=== PATIENT | female | born 1960 | race Caucasian/White ===

== ENCOUNTER → 2017-06-28 13:39 | Outpatient (CLI) | payer BC, SELFPAY ==
--- NOTE | 2017-06-28 14:11 | HPBI_ITS ---
MAMMOGRAPHY - BILATERAL DIAGNOSTIC REASON FOR EXAM: Female, 57 years old. Left lateral breast pain. PERTINENT HISTORY: Non-contributory. TECHNIQUE: Digital bilateral breast jose (3D mammographic acquisition) in the CC and MLO projections. 2-D mediolateral oblique (MLO) and craniocaudad (CC) views of both breasts were obtained. CAD: Full Field Digital Mammography with Computer Added Detection was performed. COMPARISON: Comparison is made with prior outside mammogram dated June 22, 2016. FINDINGS: Breast Composition: There are scattered areas of fibroglandular density. There are no dominant masses or suspicious calcifications. No other significant abnormalities are identified. There has been no significant change since the prior study. BI/DIAG MAMM W/CAD, BILAT IMPRESSION: Stable bilateral diagnostic mammogram. With the patient's history of left breast pain, correlation with ultrasound is recommended. ASSESSMENT CATEGORY: BIRADS Category 0: Incomplete. Need additional imaging evaluation. A letter regarding these results will be sent to the patient by the facility within 30 days. Approximately 10% of breast cancers are not detected by mammography. A normal mammogram should not delay biopsy of a clinically suspicious abnormality. Electronically Signed: Nj Bruce MD at 15:28 EST Tel [phone], Service support ,
== END ==
PROVIDERS: Family Provider Family Medicine; PCP Family Medicine; Visit Provider Nurse Practitioner Women's Health
DX: N64.4 Mastodynia (principal)
CPT/HCPCS: 77062; 77066; G0279

== ENCOUNTER 2018-07-30 00:22 | Emergency (ER) | payer BC, SELFPAY ==
[2018-07-30] VITALS (7 sets, daily range): BP systolic 109–127; BP diastolic 63–104; PULSE 69–84; RESP 15–22; TEMP 36.3–36.7; O2SAT 92–100; BMI 30.8
--- NOTE | 2018-07-30 00:53 | RAD_ITS ---
STUDY: X-RAY CHEST REASON FOR EXAM: Female, 58 years old. Chest pain TECHNIQUE: 1 view COMPARISON: None. FINDINGS: The lungs are clear and expanded. There is no demonstrated pleural abnormality. Normal size heart. Normal mediastinum and artemio. Normal visualized pulmonary arteries. Normal visualized aortic arch and descending thoracic aorta. There is a mild thoracic scoliosis with convexity to the right.. Normal visualized ribs, clavicles, and shoulders. There is no demonstrated abnormality of the visualized soft tissue structures of the upper abdomen. RAD/Chest 1 View (Portable) IMPRESSION: No acute findings in the lungs. A mild thoracic scoliosis with convexity to the right. Electronically Signed: Negrito Villalobos MD at 2:26 EDT Tel , Service support ,
--- NOTE | 2018-07-30 00:57 | ED.VIS.GEN ---
History of Present Illness Chief Complaint: Chest Pain Informant: Patient Onset: Hours - 2-3 Context: Gradual Onset Timing: Continuous Quality: achy, pressure Location: central chest Current Severity: Mild Maximum Severity: Moderate Associated Symptoms: n/v/d Narrative: 2 or 3 hours after eating some chicken tacos from a food truck, she started having nausea and vomiting, followed by explosive watery nonbloody diarrhea. Epigastric pain. All of this was followed by chest discomfort, she was dry heaving but not vomiting up anything prior to that. No fevers. No recent antibiotics or hospitalization or contact with C. difficile. Never had this before. No history of cardiac issues. She is concerned she might have food poisoning. Her family ate tacos from the truck as well but they were beef and they are not ill. There has been no other patients with similar history eating chicken tacos from a food truck tonight in the emergency department at this time. - Past Medical History (1) Anxiety Status: Chronic Past Medical History - Allergies and Home Meds Allergies/Adverse Reactions: Allergies gabapentin Allergy (Mild, Verified 06/16/17 13:08) Other peanuts Allergy (Mild, Uncoded 06/16/17 13:08) Other Primary Care Physician: Alan Maldonado MD [Primary Care Provider] - Surgical History: no surgical history Lives: With Family Smoking Status: Never smoker Drugs: None Review of Systems General: Reports: Malaise. Denies: Chills, Fever, Sweats Eyes: Denies: Visual changes - bilaterally, Diplopia ENT: Denies: Rhinorrhea, Sore throat Cardiovascular: Reports: Chest pain. Denies: Palpitations, Heart racing Respiratory: Denies: Dyspnea, Cough, Dyspnea on exertion Gastrointestinal: Reports: Abdominal pain - epigastric without radiation, Nausea, Vomiting - Dry heaving only, Diarrhea. Denies: Melena, Hematochezia Genitourinary: Denies: Dysuria, Hematuria, Frequency Musculoskeletal: Denies: Back pain, Swelling, Extremity Pain Skin: Denies: Rash, Wounds Neurological: Denies: Headache, Weakness, Numbness Physical Exam Vital Signs/Narrative: Vital Signs Temp Pulse Resp BP Pulse Ox 07/30/18 00:31 22 H 07/30/18 00:27 97.4 F L 69 22 H 127/104 H 100 Inital Vital Signs reviewed: Yes General: Well nourished, Well developed, No Acute Distress Head: Normocephalic, Atraumatic Eyes: Perrl, EOMI ENT: Moist mucous membranes, No rhinorrhea Neck: Supple, Nontender Cardiovascular: Regular rate, Regular rhythm, No murmurs Respiratory: No distress, CTA bilaterally, Chest nontender Abdomen: Soft, Nondistended, Normal bowel sounds, Tender - Epigastric. Negative for: Guarding, Rebound tenderness Back: Nontender, Normal Inspection Extremities: Nontender, No edema Skin: Normal color, No rash Neurological: Alert, Oriented x3, Cranial nerves II-XII grossly intact, Normal Strength, Normal Sensation Psychological: Normal Mood, - - anxious Diagnostic/Tx/Re-eval Impressions Chest X-Ray 07/30/18 00:53 IMPRESSION: No acute findings in the lungs. A mild thoracic scoliosis with convexity to the right. Electronically Signed: Negrito Villalobos MD at 2:26 EDT Tel , Service support , 07/30/18 00:53 Chest 1 View (Portable) [RAD] Stat Laboratory Results 07/30/18 07/30/18 07/30/18 00:43 00:43 02:40 WBC 17.3 H RBC 5.08 Hgb 14.1 Hct 45.4 MCV 89.4 MCH 27.8 MCHC 31.1 L RDW 15.1 H RDW Differential 48.9 H Plt Count 275 MPV 9.4 Immature Gran % (Auto) 0.200 Neut % (Auto) 86.1 H Lymph % (Auto) 7.8 L [place] % (Auto) 5.5 Eos % (Auto) 0.3 Baso % (Auto) 0.1 Absolute Neuts (auto) 14.9 H Absolute Lymphs (auto) 1.35 Total Counted Not Reportable Sodium 139 Potassium 3.6 Chloride 104 Carbon Dioxide 25.0 Anion Gap 10 BUN 16 Creatinine 0.96 Estim Creat Clear Calc 54.49 Est GFR (MDRD) Af Amer 77 Est GFR (MDRD) Non-Af 64 BUN/Creatinine Ratio 16.7 Glucose 156 H Calcium 9.1 Total Bilirubin 0.50 AST 24 ALT 20 Alkaline Phosphatase 75 Troponin I < 0.015 Total Protein 7.8 Albumin 4.1 Globulin 3.7 Albumin/Globulin Ratio 1.1 Lipase 74 Urine Color Yellow Urine Clarity Sl. Cloudy Urine pH 7.0 Ur Specific [place] 1.005 Urine Protein Negative Urine Glucose (UA) Normal Urine Ketones 50 H Urine Occult Blood 10 H Urine Nitrite Negative Urine Bilirubin Negative Urine Urobilinogen Normal Ur Leukocyte Esterase 500 H Urine RBC 0-5 SEEN Urine WBC 10-25 SEEN Ur Squamous Epith Cells 0-5 SEEN Urine Bacteria 1+ Urine Mucus 1+ - Rhythm Strip Rhythm Strip: Sinus Rhythm Rate: 65 Ectopy: None - EKG Initial EKG Interpretation: Sinus Rhythm, No Acute Injury Pattern, - - leftward axis. low voltage. otherwise normal EKG. Prior: No Prior - Medical Decision Making Other than a leukocytosis of 17, the rest of her labs including liver enzymes and lipase are normal. Chest x-ray unremarkable. Her EKG is normal and her troponin is negative. She was treated initially with IV fluids, Zofran, followed by a GI cocktail and Bentyl. She states the medicine seemed to really help her abdominal discomfort in her made her chest discomfort resolved. Therefore I do not think further emergent cardiac workup is necessary. She had no diarrhea while being observed for several hours. She does not feel nauseated anymore. She is tolerating oral fluids and okay being discharged home. She will be given a prescription for an enteric bacterial panel in order to rule out bacterial etiologies. Foodborne illness is certainly in the differential diagnosis but not able to be ruled out at this time, as is viral gastroenteritis, biliary disease. She has no hyperbilirubinemia, and had a negative Perez sign. 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 I do not think she has acute cholecystitis clinically. She should follow-up for reevaluation and she is amenable to that. Furthermore, she said that she forgot to initially tell me that several days ago for a couple days, she felt like she was having trouble staying hydrated. She was drinking plenty fluids, and what she actually means by this is that her urine was dark and she was going a little more frequently but had no dysuria or gross hematuria so she assumed that it was because of dehydration. We obtained a urinalysis and it shows 500 leukocyte esterase and 10-20 white blood cells per high-power field as well as a small amount of microscopic hematuria. Her specific gravity is 1.005, consistent with being well-hydrated at this time. We did give her IV fluids here. Infection may have been the cause of her dark urine the last few days. I think this is probably a separate issue from why she came. She agrees. For now I think supportive care is in order along with close outpatient follow-up and sending her stool for testing if she continues to have diarrhea. She was prescribed Zofran and Bentyl as well for symptomatic treatment; and Macrobid x 5 days for apparent urinary tract infection. Cipro may treat some bacterial causes of diarrhea, but I think that is less likely here, and could make her diarrhea worse, and is the wrong initial treatment for a simple urinary infection, so we are avoiding Cipro for those reasons at this time. She is comfortable with the overall plan here. ED Disposition - Plan for ED Patient: Disposition: Home or Assisted Living Diagnosis: Nausea vomiting and diarrhea, Chest pain, unspecified, UTI (urinary tract infection) Instructions: ED Chest Pain NonCardiac, ED Vomiting Diarrhea Nonspecific Ad Prescriptions: Ondansetron [Zofran] 8 mg PO Q8H PRN PRN #15 tablet PRN Reason: Nausea Dicyclomine HCl [Bentyl] 10 - 20 mg PO . Q4-6H PRN #20 capsule PRN Reason: abdominal cramping Nitrofurantoin Monohyd/M-Cryst [Macrobid 100 mg Capsule] 100 mg PO BID #10 capsule Referrals: Alan Maldonado MD [Primary Care Provider] - 3-5 Days if not improving
[2018-07-30 01:13] LABS: Absolute Lymphocyte Count 1.35 X10^3/ul (0.83-4.51); Absolute Neutrophil Count 14.9 X10^3/uL (2.0-7.7); Basophil# 0.02 X10^3/uL; Basophil% 0.1 % (0-1); Eosinophil# 0.05 X10^3/uL; Eosinophils% 0.3 % (0-5); Hematocrit 45.4 % (37-47); Hemoglobin 14.1 g/dl (12.0-15.0); Lymphocyte # 1.35 X10^3/ul (4.0); Lymphocyte % 7.8 % (19-41); Mean Corp Hgb Conc 31.1 g/gl (32-36); Mean Corpuscular Hgb 27.8 pg (27.0-32.0); Mean Corpuscular Volume 89.4 fL (81-99); Mean Platelet Vol. 9.4 fl (6.2-12.0); Monocyte# 0.95 X10^3/uL; Monocyte% 5.5 % (0-10); Neutrophil % 86.1 % (47-70); Platelet Count 275 K/mm3 (150-450); RBC Distribution Width CV 15.1 % (11.6-14.6); RBC Distribution Width SD 48.9 fl (35.1-43.9); Red Blood Count 5.08 M/mm3 (4.2-5.4); White Blood Count 17.3 K/mm3 (4.4-11.0)
[2018-07-30 01:14] LABS: POSITIVE COUNT NO; POSITIVE DIFFERENTIAL NO; POSITIVE MORPHOLOGY NO
[2018-07-30 01:27] LABS: ALB/GLOB Ratio 1.1 RATIO (0.9-2.4); AST(SGOT) 24 U/L (15-37); Alanine Aminotransfer ALT/SGPT 20 U/L (13-56); Albumin, Serum 4.1 g/dL (3.2-5.0); Alkaline Phosphatase 75 U/L (45-117); Anion Gap 10 (5-15); BUN 16 mg/dL (7-18); BUN/Creat Ratio 16.7 RATIO (10-20); Calcium,Total 9.1 mg/dL (8.5-10.1); Chloride 104 mmol/L (98-107); Creatinine, Serum 0.96 mg/dL (0.55-1.02); EST Glomerular Filtration Rate 64 mL/min (>60); Est Glom Filt Rate - Afr Amer 77 mL/min (>60); Estimated Creatinine Clearance 54.49 ml/min; Globulin 3.7 g/dL (2.2-4.2); Glucose 156 mg/dL (74-106); Lipase 74 U/L (73-393); Potassium 3.6 mmol/L (3.5-5.1); Protein, Total 7.8 g/dL (6.4-8.2); Sodium Level 139 mmol/L (136-145)
[2018-07-30] MEDS: Ondansetron 4 MG/2 ML Vial IV (01:39)
[2018-07-30] MEDS: 0.9% Normal Saline 1,000 ML 1000 ML IV (01:39)
--- NOTE | 2018-07-30 01:39 | EKG12_ITS ---
Test Reason : CP Blood Pressure : / mmHG Vent. Rate : 064 BPM Atrial Rate : 064 BPM P-R Int : 138 ms QRS Dur : 076 ms QT Int : 426 ms P-R-T Axes : 048 -10 056 degrees QTc Int : 439 ms Normal sinus rhythm Low voltage QRS Borderline ECG Confirmed by VINCE KHAN ([id number]), industrial editor RENETTA EL ([id number]) on 08/01/2018 4:28:18 PM Referred By: BRETT Confirmed By:VINCE KHAN
[2018-07-30] MEDS: Mag Hydrox/Al Hydrox/Simeth 30 ML UDC PO (01:48)
[2018-07-30] MEDS: Dicyclomine 10 MG Capsule 20 MG PO (01:48)
[2018-07-30 02:57] LABS: Color, Urine Yellow (Yellow); Glucose, Dipstick Normal (Normal); Ketone-Dipstick 50 mg/dl (Negative); Leukocyte Esterase-Dipstick 500 /ul (Negative); Nitrite-Dipstick Negative (Negative); Occult Blood-Urine 10 /ul (Negative); Protein-Dipstick Negative (Negative); Specific Gravity, Urine 1.005 (1.002-1.030); Urine Bilirubin Dipstick Negative (Negative); Urine Clarity Sl. Cloudy (Clear); Urine Urobilinogen Normal (Normal)
[2018-07-30 03:06] LABS: Mucous, Urine 1+ /hpf (<or=2+); Red Blood Cells-Urine 0-5 SEEN /hpf (0-5); Squamous Epithelial Cells - UA 0-5 SEEN /hpf (5-10)
[2018-07-30 03:07] LABS: Bacteria 1+ /hpf (None Seen); White Blood Cells 10-25 SEEN /hpf (0-5)
--- NOTE | 2018-07-30 11:24 | ED.DEP ---
ED Disposition - Plan for ED Patient: Disposition: Home or Assisted Living Diagnosis: Nausea vomiting and diarrhea, Chest pain, unspecified, UTI (urinary tract infection) Instructions: ED Chest Pain NonCardiac, ED Vomiting Diarrhea Nonspecific Ad Prescriptions: Ondansetron [Zofran Odt] 4 mg PO Q8H PRN PRN #20 tab PRN Reason: Nausea Ondansetron [Zofran] 8 mg PO Q8H PRN PRN #15 tablet PRN Reason: Nausea Dicyclomine HCl [Bentyl] 10 - 20 mg PO . Q4-6H PRN #20 capsule PRN Reason: abdominal cramping Dicyclomine HCl [Bentyl] 20 mg PO ACHS #20 cap Nitrofurantoin Macrocrystal [Nitrofurantoin] 100 mg PO BID #20 cap Nitrofurantoin Monohyd/M-Cryst [Macrobid 100 mg Capsule] 100 mg PO BID #10 capsule Referrals: Alan Maldonado MD [Primary Care Provider] - 3-5 Days if not improving
== END 2018-07-30 04:46 | disposition home or self-care (01) ==
PROVIDERS: Emergency Provider Emergency Medicine; Family Provider Family Medicine; PCP Family Medicine
DX: R11.2 Nausea with vomiting, unspecified (principal); R19.7 Diarrhea, unspecified; R07.9 Chest pain, unspecified; N39.0 Urinary tract infection, site not specified; F41.9 Anxiety disorder, unspecified
CPT/HCPCS: 71045; 80053; 81001; 83690; 84484; 85025; 87086; 87088; 93005; 96361; 96374; 99285; J7030; A4216; J2405

== ENCOUNTER → 2019-07-06 15:11 | Outpatient (CLI) | payer BC, SELFPAY ==
[2018-07-30 00:27] VITALS: BMI 30.8
[2019-07-06 17:38] LABS: Absolute Lymphocyte Count 2.09 X10^3/uL (0.83-4.51); Absolute Neutrophil Count 3.9 X10^3/uL (2.0-7.7); Basophil# 0.05 X10^3/uL; Basophil% 0.7 % (0-1); Eosinophil# 0.16 X10^3/uL; Eosinophils% 2.3 % (0-5); Hematocrit 43.5 % (37-47); Hemoglobin 13.3 g/dL (12.0-15.0); Lymphocyte # 2.09 X10^3/ul (4.0); Lymphocyte % 29.6 % (19-41); Mean Corp Hgb Conc 30.6 g/dL (32-36); Mean Corpuscular Hgb 28.4 pg (27.0-32.0); Mean Corpuscular Volume 92.8 fL (81-99); Mean Platelet Vol. 9.4 fl (6.2-12.0); Monocyte# 0.88 X10^3/uL; Monocyte% 12.5 % (0-10); NRBC Flagged by Analyzer 0 % (0-5); Neutrophil # 3.87 X10^3/uL (2.7-7.7); Neutrophil % 54.8 % (47-70); Platelet Count 301 K/mm3 (150-450); RBC Distribution Width CV 15.1 % (11.6-14.6); RBC Distribution Width SD 51.1 fl (35.1-43.9); Red Blood Count 4.69 M/mm3 (4.2-5.4); White Blood Count 7.1 K/mm3 (4.4-11.0)
[2019-07-06 17:55] LABS: ALB/GLOB Ratio 1.2 RATIO (0.9-2.4); AST(SGOT) 16 U/L (15-37); Alanine Aminotransfer ALT/SGPT 20 U/L (13-56); Albumin, Serum 3.8 g/dL (3.2-5.0); Alkaline Phosphatase 74 U/L (45-117); Anion Gap 5 (5-15); BUN 18 mg/dL (7-18); BUN/Creat Ratio 19.8 RATIO (10-20); Chloride 107 mmol/L (98-107); Creatinine, Serum 0.91 mg/dL (0.55-1.02); EST Glomerular Filtration Rate 67 mL/min (>60); Est Glom Filt Rate - Afr Amer 81 mL/min (>60); Globulin 3.2 g/dL (2.2-4.2); Glucose 88 mg/dL (74-106); Magnesium 2.6 mg/dL (1.6-2.6); Potassium 4.1 mmol/L (3.5-5.1); Sodium Level 141 mmol/L (136-145); Thyroid Stim Hormone (TSH) 2.91 uIU/mL (0.358-3.74)
== END ==
PROVIDERS: PCP Family Medicine; Referring Provider Family Medicine; Visit Provider Family Medicine
DX: Z01.818 Encounter for other preprocedural examination (principal); M79.7 Fibromyalgia
CPT/HCPCS: 36415; 80053; 83735; 84443; 85025

== ENCOUNTER 2019-07-28 07:56 | Day surgery (SDC) | payer BC, SELFPAY ==
[2018-07-30 00:27] VITALS: BMI 30.8
[2019-07-28] VITALS (7 sets, daily range): BP systolic 96–112; BP diastolic 50–73; PULSE 59–70; RESP 15–20; TEMP 36.6; O2SAT 92–96; BMI 28.7
[2019-07-28] MEDS: Lactated Ringers 1,000 ML 100 ML IV (08:24)
--- NOTE | 2019-07-28 09:15 | RAD_ITS ---
STUDY: X-RAY - RIGHT FOOT-fluoroscopically guided excision of a ganglion cyst. CLINICAL: Female, 59 years old. excision of ganglion cyst, 4th toe right TECHNIQUE: Fluoroscopy was utilized to perform procedure of cyst excision. The radiologist was not present in the room. The total fluoroscopy time is 0 minutes and 4 seconds. 2 images were obtained during the exam. COMPARISON: None. FINDINGS: The reported cyst is at the approximate fourth toe. Submitted images identify first or fifth toes from the mid distal metatarsals to the tip of the toes. Alignment is normal. RAD/Foot min 3 Views IMPRESSION: Fluoroscopically guided excision of a ganglion cyst as described. For details see operative report. Electronically Signed: Ioana Cardona MD at 0:36 EDT , Service support ,
[2019-07-28] MEDS: Cefazolin 2 GM in 0.9% Normal Saline 100 ML IV (09:27)
--- NOTE | 2019-07-28 09:30 | GANG_PTH ---
PATIENT: MELISSA ALEX LOC: [facility] – [place] U#:[id number] AGE/SX: 59/F ROOM: RE07/28/[address]: Dr. Aishwarya Freeman DPM : 1960 BED: DIS: 07/28/2019 SPEC #: [id number] RECD: 07/28/19 12:49 STATUS: OZZIE JAIMEE #: [id number] MARTINEZ: 07/28/19 09:[address]: Aishwarya Freeman DEPT: SURGICAL PATHOLOGY RECD BY: Mehdi Fernandes ENTERED: 07/28/19 13:40 SP TYPE: GANGLION OTHR DR: Dr. Alan Maldonado MD Tissues: GANGLION CYST Procedures: Surgery Specimen Level III HEADER OPERATION: Excision of ganglion cyst with arthroplasty of distal PRE-OP DIAGNOSIS: Right foot fourth toe ganglion cyst, [facility] TISSUE SUBMITTED: Right foot fourth toe ganglion cyst MICROSCOPIC DIAGNOSIS Right foot fourth toe ganglion cyst, excision: Consistent with ganglion cyst. Focal ulceration and associated inflammation. Acanthosis and hyperkeratosis. JL:paulo 08/01/19 MICROSCOPIC DESCRIPTION Slides are reviewed. GROSS DESCRIPTION Received in fixative is one container labeled with the patient's name and designated right foot fourth toe ganglion cyst. The specimen consists of a piece of rodriguez-white skin ellipse measuring 1 x 0.8 x 0.2 cm. The specimen is inked, serially sectioned and submitted entirely in one cassette. / JL:paulo 07/31/19 TC:5 CPT: 72188
[2019-07-28] MEDS: Bupivacaine Mpf 0.5% 30 ML VIAL (09:38)
--- NOTE | 2019-07-28 10:27 | DCINST_ITS ---
Discharge Diet: No Restrictions Discharge Activity: - - heel weight bear with surgical shoe Weight Bearing Status: Partial weight bearing Keep extremity elevated above heart level: Right Leg Call your doctor if your incision/area has: Continuous Slow Oozing, Sudden Increased Bleeding, Increased Pain/ Swelling, Increased Redness, Foul Smelling Discharge, Swelling at the incision site Call your doctor if you observe: Fever of 101 or Higher, Numbness or Tingling, Calf discomfort, Uncontrolled pain Cleanse incision/area with: Keep Dressing Clean & Dry Allergies/Adverse Reactions: Allergies gabapentin Allergy (Mild, Verified 07/28/19 08:06) Other peanuts Allergy (Mild, Uncoded 07/28/19 08:06) Other Medications to take at Discharge duloxetine 30 mg capsule,delayed release 30 mg PO QDAY 06/16/17 quetiapine 25 mg tablet 25 mg PO QHS 06/16/17 Alpha Lipoic Acid 200 mg PO DAILY 07/25/19 Magnesium Oxide [Magnesium] 800 mg PO DAILY 07/25/19 Prasterone (Dhea) [Dhea] 25 mg PO DAILY 07/25/19 Propranolol HCl [Inderal] 10 mg PO PRN PRN 07/25/19 Saccharomyces Boulardii [Daily Probiotic] 250 mg PO DAILY 07/25/19 Turmeric/Turmeric Root Extract [Turmeric 500 mg Capsule] 1 ea PO DAILY 07/25/19 Primary Care Physician: Alan Maldonado MD [Primary Care Provider] - Test Results: Test results from this visit will be discussed in further detail at your follow- up appointment, if applicable. Please Follow Up With: Aishwarya Freeman DPM When: [facility] week at [facility]. Call [phone] sooner if questions. Proposed Discharge Date: 07/28/19
--- NOTE | 2019-07-28 10:33 | PCM.OPRPT ---
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 Right fourth toe pain Post-Operative Diagnosis: Right fourth toe mucoid cyst. Right fourth toe pain Surgery/Procedure Performed:: Excision of mucoid cyst right fourth toe. Arthroplasty right fourth toe at distal interphalangeal joint Description of Surgical Findings:: Hemostasis: Well-padded pneumatic right ankle tourniquet, 250 mmHg, 18 minutes Materials: 3-0 Vicryl, 5-0 nylon Complications: None Specimen was sent The patient tolerated the procedure and anesthesia well. She was transported to the PACU with vital signs stable and vascular status intact to the right lower extremity. Postoperative x-rays were taken in the operative room prior to leaving. These x-rays demonstrated a rectus right fourth toe with no acute injuries. There is evidence of modest arthroplasty to the distal interphalangeal joint of the right fourth toe was performed. Postoperative orders were entered electronically. She will be discharged home today. embedded hardware engineer: none - Surgeon: Aishwarya Freeman DPM. Chart Reader: Stanton Joshi PGY1 Type of Anesthesia:: Local MAC - Preoperative: 10 cc of one-to-one mixture of 1% lidocaine plain and 0.5% Marcaine plain administered in typical right fourth ray block fashion Specimen's removed: Cyst right fourth toe with sent to pathology (suspected mucoid/ganglion) Drains: None Estimated Blood Loss (mL): < 50 mL Description of Procedure: Indications: This 59-year-old female with significant past medical history of fibromyalgia and anxiety complains of a recurrent cyst of the right fourth toe. This has been progressively worsening. She has failed conservative care including aspiration, offloading, shoe gear change, activity modification, and pressure reduction. Her pain affects her daily ability to walk without discomfort in a shoe. She has intact neurovascular status. The mucoid cyst is located directly dorsal to the distal interphalangeal joint and measures 7 mm in diameter. This cyst has straw-colored gelatinous fluid. There are no local signs of infection. This cyst is also translucent. X-rays do not demonstrate any adjacent osseous destruction, acute injuries or calcification. There is also irregular joint space just adjacent to the mucoid cyst with narrow; it remains rectus clinically and radiographically. The preoperative indications, planned procedure, possible benefits, risk, complications, and anticipated healing time and management were discussed in detail with the patient. She understands and elects to proceed with surgery at this time. The informed surgical consent and limb were signed. No guarantees were made. She understands risk and complications include but are not limited to following: pain, chronic pain syndrome, swelling, scarring, need for further surgery, floppy toe or deviation, burning, tingling, over under correction, recurrence, blood clot, allergic reaction, loss of limb, function, or life. I answered all of her questions. Her preoperative medical clearance and history and physical exam was reviewed from her primary care physician. Her preoperative diagnostic data was also reviewed including EKG, CBC, and CMP. Procedure in detail: The patient was transported to the operating room via cart and placed on the operating table in the supine position. Final verification of patient, surgery, and limb designation was performed via the timeout procedure. MAC anesthesia was initially by the anesthesia team. Preoperative local anesthetic was administered by the podiatry team. A well-padded pneumatic right ankle tourniquet was placed. The right lower extremity was prepped and draped in the usual aseptic manner. Surgery began as the following after an Esmarch bandage was used to exsanguinate the limb and the tourniquet was inflated: A 15 blade was used to make a semi-elliptical incision around the mucoid cyst in an oblique fashion. This incision was made through the skin only (3:1 fashion) and blunt dissection was performed down to the deeper tissues taking care to identify, protect, and retract all neurovascular structures at this point and throughout the remainder of surgery. The cyst including this skin ellipse was removed in total without difficulty and was sent as a pathology specimen for further testing. It appears there was a stalk that was communicating with the medial aspect of the distal interphalangeal joint and potentially with part of the extensor tendon sheath. Any involved tissues were excised sharply with a 15 blade and cauterized. Next, the distal interphalangeal joint was entered with a 15 blade and good exposure of the head of the middle phalanx and base of the distal phalanx was achieved. A rongeur was used to remove the cartilaginous layer to healthy bleeding subchondral bone and attempt to prevent reoccurrence by eliminating any stalk origin locations. Adjacent extensor tendon sheath was also sharply excised. Copious saline irrigation was performed. Adequate resection and alignment was successfully performed upon capsular reapproximation with 3-0 Vicryl. Adequate positioning of the toe was confirmed with intraoperative fluoroscopy. The tourniquet was deflated at this time and brisk capillary fill time was noted to all digits of the right foot. There was no pulsatile bleeding noted. Pressure was applied to maintain hemostasis and electrocauterization was used also at the suspected stump origin site prior to final closure once again. The skin was next reapproximated utilizing simple suture technique with 5-0 nylon. A postoperative dressing was applied including Betadine soaked Adaptic, gauze, Saw roll, and an [place] wrap. After procedure: The patient tolerated the procedure and anesthesia well. She was transported to the PACU with vital signs stable and vascular status intact to the right lower extremity. She will be transported home upon continued stability. She will ice and elevate for pain and inflammation management. She was also provided with postoperative pain medication prescription, [place]. She was advised on safe and proper use. She was advised to heel weight-bear with a surgical shoe which was previously dispensed. Her postoperative x-rays were reviewed as noted. She will follow-up at the [facility] in one week. Her postoperative orders were entered electronically. Aishwarya Freeman DPM, [facility] Grafts/Implants Used: none - Complications none - Admit VTE Documentation VTE Present on Admission: No VTE Mechan Device Prophylaxis: SCD's VTE Pharm Prophylaxis ordered?: No Reason prophylaxis not ordered:: Procedure Not Indicated
== END 2019-07-28 11:20 | disposition home or self-care (01) ==
LOC: SDC 07:57 → AC 07:59
PROVIDERS: PCP Family Medicine; Referring Provider Podiatrist; Visit Provider Podiatrist
PROC: (CPT 28092; principal; 2019-07-28 09:15)
DX: M67.471 Ganglion, right ankle and foot (principal); M79.674 Pain in right toe(s); M79.7 Fibromyalgia; F41.9 Anxiety disorder, unspecified
CPT/HCPCS: 01470; 28092; 73630; 76000; 88304; J7120

== ENCOUNTER → 2019-10-05 11:10 | Outpatient (CLI) | payer BC, SELFPAY ==
[2019-07-28 08:15] VITALS: BMI 28.7
[2019-10-05 12:29] LABS: Absolute Lymphocyte Count 1.79 X10^3/uL (0.83-4.51); Absolute Neutrophil Count 3.4 X10^3/uL (2.0-7.7); Basophil# 0.03 X10^3/uL; Basophil% 0.5 % (0-1); Eosinophil# 0.09 X10^3/uL; Eosinophils% 1.5 % (0-5); Hematocrit 46.4 % (37-47); Hemoglobin 14.4 g/dL (12.0-15.0); Lymphocyte # 1.79 X10^3/ul (4.0); Lymphocyte % 29.2 % (19-41); Mean Corpuscular Volume 93.4 fL (81-99); Mean Platelet Vol. 9.5 fl (6.2-12.0); Monocyte# 0.84 X10^3/uL; Monocyte% 13.7 % (0-10); NRBC Flagged by Analyzer 0 % (0-5); Neutrophil # 3.36 X10^3/uL (2.7-7.7); Neutrophil % 54.8 % (47-70); Platelet Count 297 K/mm3 (150-450); RBC Distribution Width CV 14.8 % (11.6-14.6); Red Blood Count 4.97 M/mm3 (4.2-5.4); White Blood Count 6.1 K/mm3 (4.4-11.0)
[2019-10-05 13:27] LABS: Vitamin D,25 Hydroxy 33.8 ng/mL
[2019-10-05 13:28] LABS: AST(SGOT) 20 U/L (15-37); Alanine Aminotransfer ALT/SGPT 23 U/L (13-56); Albumin, Serum 3.6 g/dL (3.2-5.0); Alkaline Phosphatase 67 U/L (45-117); Anion Gap 7 (5-15); BUN 13 mg/dL (7-18); BUN/Creat Ratio 17.6 RATIO (10-20); Calcium,Total 9.1 mg/dL (8.5-10.1); Chloride 106 mmol/L (98-107); Creatinine, Serum 0.74 mg/dL (0.55-1.02); EST Glomerular Filtration Rate 85 mL/min (>60); Est Glom Filt Rate - Afr Amer 103 mL/min (>60); Free T3 2.6 pg/mL (2.18-3.98); Globulin 3.6 g/dL (2.2-4.2); Glucose 99 mg/dL (74-106); Magnesium 2.2 mg/dL (1.6-2.6); Potassium 3.8 mmol/L (3.5-5.1); Protein, Total 7.2 g/dL (6.4-8.2); Sodium Level 140 mmol/L (136-145); T4 Free Direct 0.81 ng/dL (0.76-1.46); Thyroid Stim Hormone (TSH) 2.52 uIU/mL (0.358-3.74)
[2019-10-08 01:09] LABS: SAR-COV-2 IGG ANTIBODY Negative (Negative)
== END ==
PROVIDERS: PCP Family Medicine; Referring Provider Family Medicine; Visit Provider Family Medicine
DX: M79.7 Fibromyalgia (principal)
CPT/HCPCS: 80053; 82306; 83735; 84439; 84443; 84481; 85025; 86769; G2023

== ENCOUNTER → 2020-01-02 20:09 | Outpatient (CLI) | payer BC, SELFPAY ==
[2019-07-28 08:15] VITALS: BMI 28.7
[2020-01-02] MEDS: Zolpidem Tartrate 5 MG Tablet PO (22:20)
== END ==
PROVIDERS: PCP Family Medicine; Referring Provider Internal Medicine Critical Care Medicine; Visit Provider Internal Medicine Critical Care Medicine
DX: G47.10 Hypersomnia, unspecified (principal)
CPT/HCPCS: 95810

== ENCOUNTER → 2020-01-11 13:00 | Outpatient (CLI) | payer BC, SELFPAY ==
[2019-07-28 08:15] VITALS: BMI 28.7
== END ==
PROVIDERS: PCP Family Medicine; Visit Provider Nurse Practitioner Acute Care
DX: Z46.89 Encounter for fitting and adjustment of other specified devices (principal)

== ENCOUNTER → 2020-01-12 10:00 | Outpatient (CLI) | payer BC, SELFPAY ==
[2019-07-28 08:15] VITALS: BMI 28.7
== END ==
PROVIDERS: PCP Family Medicine; Visit Provider Nurse Practitioner Acute Care
DX: Z46.89 Encounter for fitting and adjustment of other specified devices (principal)

== ENCOUNTER → 2020-03-26 13:00 | Outpatient (CLI) | payer BC, SELFPAY | PROVIDERS: PCP Family Medicine; Referring Provider Nurse Practitioner Acute Care; Visit Provider Nurse Practitioner Acute Care | DX: G47.30 Sleep apnea, unspecified (principal) | CPT/HCPCS: 98960; G0463 ==

== ENCOUNTER → 2020-11-06 15:43 | Outpatient (CLI) | payer BC, SELFPAY ==
[2020-11-06 14:36] VITALS: BMI 27.3
[2020-11-11 14:31] LABS: HPV APTIMA, High Risk Negative (Negative)
== END ==
PROVIDERS: PCP Family Medicine; Visit Provider Nurse Practitioner Women's Health
DX: Z12.4 Encounter for screening for malignant neoplasm of cervix (principal)
CPT/HCPCS: 87624; 88175; G0145

== ENCOUNTER → 2022-03-26 | Outpatient (CLI) | payer BC, SELFPAY ==
--- NOTE | 2022-03-26 09:35 | BI_ITS ---
MAMMOGRAPHY - BILATERAL SCREENING REASON FOR EXAM: Female, 61 years old. Routine annual screening examination. PERTINENT HISTORY: Non-contributory. TECHNIQUE: Digital bilateral breast gabriella (3D mammographic acquisition) in the CC and MLO projections. 2-D mediolateral oblique (MLO) and craniocaudad (CC) views of both breasts were obtained. CAD: Full Field Digital Mammography with Computer Added Detection was performed. COMPARISON: Comparison is made with prior study of 06/28/2017. FINDINGS: Breast Composition: There are scattered areas of fibroglandular density. There are no dominant masses or suspicious calcifications. Stable small benign-appearing bilateral axillary lymph nodes. No other significant abnormalities are identified. There has been no significant change since the prior study. BI/SCRN MAMM (CAD)W/GABRIELLA BILAT IMPRESSION: Stable bilateral screening mammogram. Yearly follow-up mammogram recommended. (A) ASSESSMENT CATEGORY: BIRADS Category 2: Benign. A letter regarding these results will be sent to the patient by the facility within 30 days. Approximately 10% of breast cancers are not detected by mammography. A normal mammogram should not delay biopsy of a clinically suspicious abnormality. [id number] Electronically Signed: Nj Bruce MD at 10:22 EST ,
== END | disposition home or self-care (01) ==
LOC: OPBI 09:33
PROVIDERS: PCP Family Medicine; Visit Provider Nurse Practitioner Women's Health
DX: Z12.31 Encounter for screening mammogram for malignant neoplasm of breast (principal)
CPT/HCPCS: 77063; 77067

== ENCOUNTER → 2023-02-10 | Outpatient (CLI) | payer OTHER, SELFPAY ==
[2023-02-10 10:00] LABS: Absolute Lymphocyte Count 1.93 X10^3/uL (0.83-4.51); Absolute Neutrophil Count 2.9 X10^3/uL (2.0-7.7); Basophil# 0.02 X10^3/uL; Basophil% 0.4 % (0-1); Eosinophil# 0.09 X10^3/uL; Eosinophils% 1.6 % (0-5); Hematocrit 44.6 % (37-47); Hemoglobin 14.8 g/dL (12.0-15.0); Lymphocyte # 1.93 X10^3/ul (0.83-4.51); Lymphocyte % 35.1 % (19-41); Mean Corp Hgb Conc 33.2 g/dL (32-36); Mean Corpuscular Hgb 31.4 pg (27.0-32.0); Mean Corpuscular Volume 94.7 fL (81-99); Mean Platelet Vol. 9.1 fl (6.2-12.0); Monocyte% 10.9 % (0-10); NRBC Flagged by Analyzer 0 % (0-5); Neutrophil # 2.85 X10^3/uL (2.7-7.7); Neutrophil % 51.8 % (47-70); Platelet Count 262 K/mm3 (150-450); RBC Distribution Width CV 13.2 % (11.6-14.6); RBC Distribution Width SD 46.5 fl (35.1-43.9); Red Blood Count 4.71 M/mm3 (4.2-5.4); White Blood Count 5.5 K/mm3 (4.4-11.0)
[2023-02-10 11:04] LABS: Hemoglobin A1c 5.8 % (3.8-5.6)
[2023-02-10 11:08] LABS: AST(SGOT) 15 U/L (15-37); Alanine Aminotransfer ALT/SGPT 21 U/L (13-56); Albumin, Serum 3.5 g/dL (3.2-5.0); Alkaline Phosphatase 58 U/L (45-117); Anion Gap 5 (5-15); BUN 20 mg/dL (7-18); BUN/Creat Ratio 29.3 RATIO (10-20); Calcium,Total 8.6 mg/dL (8.5-10.1); Chloride 111 mmol/L (98-107); Cholesterol 214 mg/dL (200); Creatinine, Serum 0.68 mg/dL (0.55-1.02); EST Glomerular Filtration Rate 92 mL/min (>60); Est Glom Filt Rate - Afr Amer 112 mL/min (>60); Globulin 3.5 g/dL (2.2-4.2); Glucose 111 mg/dL (74-106); High Density Lipoprotein 58 mg/dL; Potassium 3.9 mmol/L (3.5-5.1); Sodium Level 139 mmol/L (136-145); Thyroid Stim Hormone (TSH) 2.86 uIU/mL (0.358-3.74); Triglycerides 100 mg/dL; Very Low Density Lipoprotein 20 mg/dL (5-40)
== END | disposition home or self-care (01) ==
LOC: MFPLAB 09:29
PROVIDERS: PCP Family Medicine; Visit Provider Family Medicine
DX: G47.33 Obstructive sleep apnea (adult) (pediatric) (principal); M79.7 Fibromyalgia; Z13.1 Encounter for screening for diabetes mellitus; Z13.220 Encounter for screening for lipoid disorders
CPT/HCPCS: 36415; 80053; 80061; 83036; 84443; 85025

== ENCOUNTER 2023-06-09 09:04 | Day surgery (SDC) | payer OTHER, SELFPAY ==
[2023-06-09 09:29] VITALS: BP 125/67; PULSE 62; RESP 16; TEMP 36.6; O2SAT 97; BMI 28.2
--- NOTE | 2023-06-09 09:32 | H&P.OPEN ---
HPI - General General Date of Service: 06/09/23 HPI Narrative MELISSA ALEX, is a 62 F who presents for screening colonoscopy. Patient had previous colonoscopy 2012 which was only showed hemorrhoids per patient. Patient has bowel movements daily denies any blood. Patient denies any chronic abdominal pain/nausea/vomiting/reflux. Patient's maternal grandfather had colon cancer-unsure age of dx-- no immediate relatives. REPLACED BY [facility] Medical History Anxiety Chronic neck and back pain Depression Family hx of colon cancer Fibromyalgia Hemorrhoids Knee pain Menopausal disorder Mucoid cyst of joint Pre-diabetes Shoulder pain Sleep apnea Sleep disorder Tinnitus, bilateral Toe pain, right Home Medications duloxetine 30 mg capsule,delayed release (Cymbalta) 30 mg PO DAILY 06/16/17 [History Last Taken Unknown] zolpidem 5 mg tablet 5 mg PO QHS 05/30/20 [History Last Taken Unknown] cholecalciferol (vitamin D3) 50 mcg (2,000 unit) capsule 50 mcg PO DAILY 11/06/20 [History Last Taken Unknown] prasterone (dhea) 25 mg capsule (DHEA) 25 mg PO DAILY 11/06/20 [History Last Taken Unknown] alpha lipoic acid 200 mg capsule 200 mg PO DAILY 03/18/22 [History Last Taken Unknown] ferrous sulfate 325 mg (65 mg iron) tablet (Feosol) 325 mg PO DAILY 03/18/22 [History Last Taken Unknown] magnesium glycinate 100 mg tablet 100 mg PO DAILY 03/18/22 [History Last Taken Unknown] vitamin B comp and C no.3 15 mg-10 mg-50 mg-5 mg-300 mg capsule (B Complex Plus Vitamin C) 1 cap PO DAILY 03/18/22 [History Last Taken Unknown] carisoprodol 350 mg tablet 350 mg PO DAILY 06/03/23 [History Last Taken Unknown] Allergy/AdvReac Type Severity Reaction Status Date / Time gabapentin Allergy Mild Other Verified 06/09/23 09:28 peanut [peanuts] Allergy Mild Other Verified 06/09/23 09:28 Family History (Updated 04/16/23 @ 14:49 by Angélica Almaraz) Father Diabetes CVA (cerebral vascular accident) Obesity Mother Thyroid disorder Obesity Arthritis Grandfather Colon cancer Other Heart disease Myocardial infarction Surgical History colonoscopy with brushings History of toe surgery Social History Smoking Status: Never smoker alcohol intake: current details: Social substance use type: does not use caffeine: Yes frequency: 1-2 times per week seatbelt use: always do you feel safe at home: Yes additional social history: Abdelrah[employer] Retired Past Medical/Surgical History Planned Operation Planned Operative Procedure/s: COLONOSCOPY S.O.S: No Previous Hospitalizations/Surgeries HX Hospitalizations: No HX of Surgeries: MOLARS REMOVED COLONOSCOPY Any Problems With Anesthesia: No You/Your Family Experience Fever (Hyperthermia) With Anes: No Cholinesterase deficiency: No Cardiovascular Hx Chest Pain within Last 2 months: No Hx of Irregular Heartbeat and/or Afib: No Hx Heart Attack: No Hx Congestive Heart Failure: No Hx Rheumatic Fever: No Hx Hypertension: No Hx Internal Defibrillator: No Hx Pacemaker: No Hx Cardiac Catheterization: No Hx Cardiac Surgery/Stents/Etc.: No Hx Stress Test: No Hx Pain in Legs when Walking/Leg Cramps: No (FIBROMYALGIA) Respiratory Chronic Cough: No HX of Shortness of Breath: No Hoarseness: No Hx Chronic Obstructive Pulmonary Disease (COPD): No Hx Asthma: No Hx Emphysema: No Hx Sleep Apnea: Yes CPAP: Yes BIPAP: No Hx Respiratory Tract Infection/Cold (presently): No Result (for STOP score): Positive Hx Smoking: Yes Smoking Status: Never smoker Gastrointestinal Hx Gastrointestinal Disorders: No Hx Gastrointestinal Bleed: No Hx Ulcer: No Hx Hiatal Hernia: No Difficulty Chewing/Swallowing: No Special diet followed at home: No Hx Unplanned Weight Loss of 20#: No HX Unplanned Weight Gain of 20#: No Neurological Hx Seizures: No HX Syncope/Blackout Spells/Unconsciousness: No Hx Transient Ischemic Attacks (TIA): No Hx Multiple Sclerosis: No Hx Parkinson's Disease: No Hx Head/Neck Injury: No Hx Headaches: No Hx Back Injury/Pain: No Recent Onset of Speech Difficulty: No Restless Legs: Yes (FIBROMYALGIA) Does patient have nerve stimulator: No Blood Disorder Hx Leukemia: No Bleeding Tendencies: No Hx Deep Vein Thrombosis: No Hx High Cholesterol: No Blood Transmitted Disease: No Hx Hepatitis: No Hx Cirrhosis: No Hx Anemia: No Hx Blood Disorders: No Reproduction Is Patient Lactating: No Hx Hysterectomy: No Hx Tubal Ligation: No Are You Post Menopause: Yes Musculoskeletal Hx Arthritis: No Hx Rheumatoid Arthritis: No Hx Gout: No Recent Onset of an Orthopedic Problem: No Endocrine Hx Diabetes: No Thyroid Disease: No Hx Steroid Therapy: No Psycho/Social Hx Substance Use: No Hx Alcohol Use: No Hx Anxiety: Yes Hx Depression: Yes Mental Illness: No Hx Dementia: No Miscellaneous Hx Cancer: No Recent Exposure to Contagious Disease: No Hx of C-Diff: No Any Loose Teeth: No Allergies gabapentin Allergy (Mild, Verified 06/09/23 09:28) Other Throat closes peanut [peanuts] Allergy (Mild, Verified 06/09/23 09:28) Other From the PAT History Number of Risk Factors: 2 Physical Exam Const alert, oriented x3 and no apparent distress HEENT normocephalic and head/scalp atraumatic Resp normal respiratory effort Cardio regular rate GI soft to palpation and non-tender; Negative for non-distended Palpation: Negative for guarding Extremity no clubbing, cyanosis or edema Skin no rashes or lesions noted Neuro CN's II-XII intact bilaterally Psych mental status grossly normal Assessment & Plan Assessment/Plan (1) Encounter for screening for malignant neoplasm of colon: Surgery Risks - Colonoscopy I discussed with the patient the risks of the procedure: Yes Risks Include but are not Limited To: Risks include but are not limited to: Bleeding, perforation requiring further surgery, inability to complete colonoscopy requiring barium enema.
[2023-06-09] MEDS: Lactated Ringers 1,000 ML 15 ML IV (09:37)
--- NOTE | 2023-06-09 10:30 | COLBX_PTH ---
PATHOLOGY RESULTS PATIENT: MELISSA ALEX LOC: EN U#:[id number] AGE/SX: 62/F ROOM: RE06/09/[address]: Dr. Gabbie Rao MD : 1960 BED: DIS: 06/09/2023 SPEC #: [id number] RECD: 06/09/23 12:30 STATUS: OZZIE REKatt #: [id number] MARTINEZ: 06/09/23 10:[address]: Gabbie Rao DEPT: SURGICAL PATHOLOGY RECD BY: Madyson Pa ENTERED: 06/09/23 12:31 SP TYPE: COLON BX OTHR DR: Dr. Alan Maldonado MD Tissues: Ascending colon Procedures: Surgery Specimen Level IV HEADER OPERATION: Colonoscopy - open access with biopsy PRE-OP DIAGNOSIS: Screening TISSUE SUBMITTED: Ascending colon polyp biopsy MICROSCOPIC DIAGNOSIS Ascending colon polyp, biopsy: Tubular adenoma. SJ:paulo 06/10/2023 MICROSCOPIC DESCRIPTION Slides are reviewed. GROSS DESCRIPTION Received in fixative is one container labeled with the patient's name and designated Ascending colon polyp biopsy. The specimen consists of one irregular fragment of light rodriguez soft tissue that measures 0.3 x 0.3 x 0.1 cm. The specimen is totally submitted in one cassette. / SJ:paulo 06/09/2023 TC:1 CPT: 77463
[2023-06-09 10:45] VITALS: BP 107/64; BP 125/67; PULSE 78; RESP 16; TEMP 36.7; O2SAT 94
--- NOTE | 2023-06-09 10:45 | OP.COLON_ITS ---
Patient Name: Suzette Ferris Procedure Date: 06/09/2023 10:11 AM Date of : 1960 Age: 62 Procedure: Colonoscopy Indications: Screening for colorectal malignant neoplasm Providers: Gabbie Rao MD Medicines: Monitored Anesthesia Care Patient Profile: This is a 62 year old female. Last Colonoscopy: 2012. Complications: No immediate complications. Procedure: Pre-Anesthesia Assessment: - Prior to the procedure, a History and Physical was performed, and patient medications and allergies were reviewed. The patient's tolerance of previous anesthesia was also reviewed. The risks and benefits of the procedure and the sedation options and risks were discussed with the patient. All questions were answered, and informed consent was obtained. Prior Anticoagulants: The patient has taken no anticoagulant or antiplatelet agents. ASA Grade Assessment: Per anesthesia. After reviewing the risks and benefits, the patient was deemed in satisfactory condition to undergo the procedure. After I obtained informed consent, the scope was passed under direct vision. Throughout the procedure, the patient's blood pressure, pulse, and oxygen saturations were monitored continuously. The pediatric colonoscope was introduced through the anus and advanced to the cecum, identified by the appendiceal orifice, ileocecal valve and palpation. The colonoscopy was performed without difficulty. The patient tolerated the procedure well. The quality of the bowel preparation was good. Scope In: 10:17:46 AM Scope Withdrawal Time 0 hours 12 minutes 15 seconds Scope Out: 10:38:08 AM Total Procedure Duration Time 0 hours 20 minutes 22 seconds Findings: Hemorrhoids were found on perianal exam. Non-bleeding internal hemorrhoids were found. The hemorrhoids were Grade I (internal hemorrhoids that do not prolapse). A less than 5 mm polyp was found in the ascending colon. The polyp was sessile. The polyp was removed with a cold biopsy forceps. Resection and retrieval were complete. The exam was otherwise without abnormality. Impression: - Hemorrhoids found on perianal exam. - Non-bleeding internal hemorrhoids. - One less than 5 mm polyp in the ascending colon, removed with a cold biopsy forceps. Resected and retrieved. - The examination was otherwise normal. Recommendation: - Discharge patient to home. - Resume previous diet. - Continue present medications. - Await pathology results. - Repeat colonoscopy in 5 years for surveillance based on pathology results. Procedure Code(s): --- Professional --- 98482, PT, Colonoscopy, flexible; with biopsy, single or multiple Diagnosis Code(s): --- Professional --- Z12.11, Encounter for screening for malignant neoplasm of colon K64.0, First degree hemorrhoids D12.2, Benign neoplasm of ascending colon CPT copyright 2021 [employer]. All rights reserved. The codes documented in this report are preliminary and upon certified medical coder review may be revised to meet current compliance requirements. MD Gabbie Mcduffie MD 06/09/2023 10:45:03 AM This report has been signed electronically. Number of Addenda: 0 Note Initiated On: 06/09/2023 10:11 AM
--- NOTE | 2023-06-09 10:45 | OP.CCLET_ITS ---
06/09/2023 Alan Maldonado [address] [place] [address] Re : Colonoscopy procedure for Suzette Ferris Dear Dr. Maldonado This procedure was performed on Friday, June 09, 2023. My impressions and recommendations are as follows: Impressions : - Hemorrhoids found on perianal exam. - Non-bleeding internal hemorrhoids. - One less than 5 mm polyp in the ascending colon, removed with a cold biopsy forceps. Resected and retrieved. - The examination was otherwise normal. Recommendations : - Discharge patient to home. - Resume previous diet. - Continue present medications. - Await pathology results. - Repeat colonoscopy in 5 years for surveillance based on pathology results. My findings are described in the full procedure note, which is enclosed. If I can be of further assistance, please feel free to contact me at Doctor phone number(s): , Work: . Sincerely, MD Gabbie Mcduffie MD 06/09/2023 10:45:03 AM This report has been signed electronically.
[2023-06-09 10:50] VITALS: BP 110/62; BP 125/67; PULSE 72; RESP 16; O2SAT 92
[2023-06-09 10:55] VITALS: BP 113/67; BP 125/67; PULSE 67; RESP 16; O2SAT 94
[2023-06-09 11:00] VITALS: BP 109/58; BP 125/67; PULSE 69; RESP 16; TEMP 36.4; O2SAT 93
[2023-06-09 11:14] VITALS: BP 125/67
== END 2023-06-09 11:23 | disposition home or self-care (01) ==
LOC: EN 09:06 → AC 09:07
PROVIDERS: PCP Family Medicine; Referring Provider Family Medicine; Visit Provider Surgery
PROC: 0DJD8ZZ Inspection of Lower Intestinal Tract, Via Natural or Artificial Opening Endoscopic (ICD-10-PCS; CPT 45378; principal; 2023-06-09 10:25)
DX: Z12.11 Encounter for screening for malignant neoplasm of colon (principal); Z80.0 Family history of malignant neoplasm of digestive organs; M79.7 Fibromyalgia; K64.0 First degree hemorrhoids; D12.2 Benign neoplasm of ascending colon; F32.A Depression, unspecified
CPT/HCPCS: 45380; 88305; J7120; J2405

== ENCOUNTER → 2023-08-19 | Outpatient (CLI) | payer OTHER, SELFPAY ==
[2023-08-19 15:10] LABS: Absolute Lymphocyte Count 2.51 X10^3/uL (0.83-4.51); Absolute Neutrophil Count 4.2 X10^3/uL (2.0-7.7); Basophil# 0.04 X10^3/uL; Basophil% 0.5 % (0-1); Eosinophil# 0.11 X10^3/uL; Eosinophils% 1.4 % (0-5); Hematocrit 45.1 % (37-47); Hemoglobin 14.6 g/dL (12.0-15.0); Lymphocyte # 2.51 X10^3/ul (0.83-4.51); Lymphocyte % 31.9 % (19-41); Mean Corp Hgb Conc 32.4 g/dL (32-36); Mean Corpuscular Hgb 30.8 pg (27.0-32.0); Mean Corpuscular Volume 95.1 fL (81-99); Mean Platelet Vol. 9.4 fl (6.2-12.0); Monocyte# 0.94 X10^3/uL; Monocyte% 11.9 % (0-10); NRBC Flagged by Analyzer 0 % (0-5); Neutrophil # 4.24 X10^3/uL (2.7-7.7); Neutrophil % 53.8 % (47-70); Platelet Count 322 K/mm3 (150-450); RBC Distribution Width CV 13.9 % (11.6-14.6); Red Blood Count 4.74 M/mm3 (4.2-5.4); White Blood Count 7.9 K/mm3 (4.4-11.0)
[2023-08-19 15:48] LABS: ALB/GLOB Ratio 1.1 RATIO (0.9-2.4); AST(SGOT) 21 U/L (15-37); Alanine Aminotransfer ALT/SGPT 19 U/L (13-56); Alkaline Phosphatase 62 U/L (45-117); Anion Gap 5 (5-15); BUN 16 mg/dL (7-18); BUN/Creat Ratio 21.6 RATIO (10-20); Calcium,Total 9.4 mg/dL (8.5-10.1); Chloride 108 mmol/L (98-107); Creatinine, Serum 0.74 mg/dL (0.55-1.02); EST Glomerular Filtration Rate 84 mL/min (>60); Est Glom Filt Rate - Afr Amer 101 mL/min (>60); Globulin 3.5 g/dL (2.2-4.2); Glucose 98 mg/dL (74-106); Potassium 3.9 mmol/L (3.5-5.1); Protein, Total 7.5 g/dL (6.4-8.2); Sodium Level 139 mmol/L (136-145); Thyroid Stim Hormone (TSH) 3.87 uIU/mL (0.358-3.74)
[2023-08-19 16:03] LABS: Hemoglobin A1c 5.7 % (3.8-5.6)
== END | disposition home or self-care (01) ==
LOC: MFPLAB 13:59
PROVIDERS: PCP Family Medicine; Visit Provider Family Medicine
DX: E88.810 Metabolic syndrome (principal); M79.7 Fibromyalgia; R19.8 Other specified symptoms and signs involving the digestive system and abdomen
CPT/HCPCS: 36415; 80053; 83036; 84443; 85025

== ENCOUNTER → 2024-02-16 | Outpatient (CLI) | payer OTHER, SELFPAY ==
--- NOTE | 2024-02-16 10:32 | BI_ITS ---
MAMMOGRAPHY - BILATERAL SCREENING REASON FOR EXAM: Female, 63 years old. Routine annual screening examination. PERTINENT HISTORY: Non-contributory. TECHNIQUE: Digital bilateral breast gabriella (3D mammographic acquisition) in the CC and MLO projections. 2-D mediolateral oblique (MLO) and craniocaudad (CC) views of both breasts were obtained. CAD: Full Field Digital Mammography with Computer Added Detection was performed. COMPARISON: Comparison is made with prior study dated March 26, 2022 and January 26, 2018. FINDINGS: Breast Composition: There are scattered areas of fibroglandular density. There are no dominant masses or suspicious calcifications. Stable small benign-appearing bilateral axillary lymph nodes. No other significant abnormalities are identified. There has been no significant change since the prior study. BI/SCRN MAMM (CAD)W/GABRIELLA BILAT IMPRESSION: Stable bilateral screening mammogram. Yearly follow-up mammogram recommended. (A) ASSESSMENT CATEGORY: BIRADS Category 2: Benign. A letter regarding these results will be sent to the patient by the facility within 30 days. Approximately 10% of breast cancers are not detected by mammography. A normal mammogram should not delay biopsy of a clinically suspicious abnormality. [id number] Electronically Signed: Nj Bruce MD at 11:41 EDT ,
== END | disposition home or self-care (01) ==
PROVIDERS: PCP Family Medicine; Referring Provider Family Medicine; Visit Provider Family Medicine
DX: Z12.31 Encounter for screening mammogram for malignant neoplasm of breast (principal)
CPT/HCPCS: 77063; 77067

== ENCOUNTER → 2024-09-25 | Outpatient (CLI) | payer MEDICARE, OTHER, SELFPAY | END | disposition home or self-care (01) | LOC: LABSPEC 08:17 | PROVIDERS: PCP Family Medicine; Referring Provider Physician Assistant; Visit Provider Physician Assistant | DX: R39.15 Urgency of urination (principal) | CPT/HCPCS: 87077; 87086; 87088; 87186 ==

== ENCOUNTER → 2024-12-04 | Outpatient (CLI) | payer MEDICARE, OTHER, SELFPAY ==
[2024-12-04 16:12] LABS: Free T3 2.5 pg/mL (2.18-3.98)
== END | disposition home or self-care (01) ==
LOC: MFPLAB 12:08
PROVIDERS: PCP Family Medicine; Referring Provider Family Medicine; Visit Provider Family Medicine
DX: R79.89 Other specified abnormal findings of blood chemistry (principal)
CPT/HCPCS: 36415; 84439; 84443; 84481

== ENCOUNTER 2025-05-07 09:07 | Outpatient (CLI) | payer MEDICARE, OTHER, SELFPAY ==
[2025-05-07 10:26] LABS: Hematocrit 39.6 % (37-47); Hemoglobin 12.2 g/dL (12.0-15.0); Immature Granulocytes Count 0.010 X10^3/uL (0.0-0.0); Mean Corp Hgb Conc 30.8 g/dL (32-36); Mean Corpuscular Volume 86.3 fL (81-99); Mean Platelet Vol. 9.0 fl (6.2-12.0); NRBC Flagged by Analyzer 0 % (0-5); Platelet Count 342 K/mm3 (150-450); RBC Distribution Width CV 14.2 % (11.6-14.6); RBC Distribution Width SD 45.1 fl (35.1-43.9); Red Blood Count 4.59 M/mm3 (4.2-5.4); White Blood Count 5.7 K/mm3 (4.4-11.0)
[2025-05-07 11:15] LABS: AST(SGOT) 19 U/L (<=31); Alanine Aminotransfer ALT/SGPT 11 U/L (<=34); Albumin, Serum 4.2 g/dL (3.4-4.8); Alkaline Phosphatase 65 U/L (35-104); Anion Gap 12 (5-15); BUN 13 mg/dL (4-19); BUN/Creat Ratio 21.3 RATIO (10-20); CORTISOL AM 10.90 ug/dL (6.02-18.40); Calcium,Total 9.1 mg/dL (7.6-11.0); Carbon Dioxide 22.2 mmol/L (21.0-32.0); Chloride 106 mmol/L (98-108); Cholesterol 205 mg/dL (<=200); Free T3 2.9 pg/mL (2.18-3.98); Globulin 2.8 g/dL (2.2-4.2); Glucose 112 mg/dL (70-99); Low Density Lipoprotein Calc. 132 mg/dL; Potassium 3.8 mmol/L (3.3-5.1); Triglycerides 122 mg/dL; Very Low Density Lipoprotein 24 mg/dL (5-40); cholesterol:hdl ratio screen 3.97
== END 2025-05-07 23:59 | disposition home or self-care (01) ==
LOC: MFPLAB 09:09
PROVIDERS: PCP Family Medicine; Visit Provider Family Medicine
DX: Z13.220 Encounter for screening for lipoid disorders (principal); M79.7 Fibromyalgia; R73.09 Other abnormal glucose; E78.00 Pure hypercholesterolemia, unspecified
CPT/HCPCS: 36415; 80053; 80061; 82533; 82627; 83036; 84439; 84443; 84481; 85025; 82626